=== PATIENT | male | born 1955 | race Caucasian/White ===

== ENCOUNTER 2022-02-02 08:32 | Outpatient (CLI) | payer BC ==
[2022-02-02] MEDS ORDERED: Iopamidol 300 61% 100 ML VIAL FS ONE (09:50)
== END 2022-02-02 08:33 | disposition home or self-care (01) ==
LOC: CSHCT 08:32
PROVIDERS: ATTEND Internal Medicine Gastroenterology
DX: R14.0 Abdominal distension (gaseous) (principal); R05.9 Cough, unspecified; K21.9 Gastro-esophageal reflux disease without esophagitis; Z95.818 Presence of other cardiac implants and grafts; R59.0 Localized enlarged lymph nodes; N20.0 Calculus of kidney
CPT/HCPCS: 71260; 74177; 82565

== ENCOUNTER 2023-03-21 13:05 | Outpatient (CLI) | payer BC | END 2023-03-21 13:06 | disposition home or self-care (01) | LOC: CSHMRI 13:05 | PROVIDERS: ATTEND Orthopaedic Surgery | DX: M75.101 Unspecified rotator cuff tear or rupture of right shoulder, not specified as traumatic (principal); M75.111 Incomplete rotator cuff tear or rupture of right shoulder, not specified as traumatic; S46.111A Strain of muscle, fascia and tendon of long head of biceps, right arm, initial encounter; Z98.890 Other specified postprocedural states; M25.411 Effusion, right shoulder ==

== ENCOUNTER 2025-06-25 14:05 | Outpatient (CLI) | payer BC | END 2025-06-25 14:06 | disposition home or self-care (01) | LOC: CSHMRI 14:05 | PROVIDERS: ATTEND Orthopaedic Surgery | DX: M47.26 Other spondylosis with radiculopathy, lumbar region (principal); M48.061 Spinal stenosis, lumbar region without neurogenic claudication | CPT/HCPCS: 72148 ==